=== PATIENT | male | born 1955 | race Hispanic/Latino ===

== ENCOUNTER 2024-01-09 15:02 | Outpatient (RCR) | payer MEDICARE, SELFPAY | END 2024-01-28 23:59 | disposition home or self-care (01) | LOC: CPTX 15:02 | PROVIDERS: PCP Nurse Practitioner Family; Referring Provider Nurse Practitioner Family; Visit Provider Nurse Practitioner Family | DX: Z53.8 Procedure and treatment not carried out for other reasons (principal) ==